=== PATIENT | male | born 1975 | race Caucasian/White ===

== ENCOUNTER 2016-10-06 13:30 | Emergency (ER) | payer MEDICAID ==
[2016-10-06 13:34] VITALS: RESP 18; O2SAT 94
--- NOTE | 2016-10-06 14:25 | EDPHY ---
H & P Stated Complaint: Boil on R upper leg x years;worse over past 2 days Time Seen by Provider: 10/06/16 13:46 HPI/ROS: Chief complaint: Boil on right leg History of present illness: This is a 41-year-old male who presents to the emergency department for evaluation and treatment of a boil on his right leg. Patient reports he has developed this boil over the last few days. It is increasing in size. It is red, warm and painful. He denies precipitating factors. He denies alleviating factors. He has had similar problems multiple times in the past. Sometimes he is able to strain them on his own sometimes it will spontaneously drained. He denies other associated signs or symptoms including no fevers. - Personal History Current Tetanus Diphtheria and Acellular Pertussis (TDAP): Unsure - Medical/Surgical History Hx Alcoholism: Yes - Social History Smoking Status: Former smoker - Physical Exam Exam: General Appearance: Alert, nontoxic. Eyes: Pupils equal and round no injection. Respiratory: Chest is nontender, lungs are clear to auscultation. Cardiac: regular rate and rhythm. Gastrointestinal: Abdomen is soft and nontender, no masses, bowel sounds normal. Musculoskeletal: Ambulating without difficulty Skin: There is an area of fluctuance with surrounding erythema and edema to the right proximal medial thigh. It does not extend into the groin including no involvement of the scrotum or perineum. Constitutional: Initial Vital Signs Temperature (C) 36.6 C 10/06/16 13:30 Heart Rate 88 10/06/16 13:30 Respiratory Rate 18 10/06/16 13:30 Blood Pressure 117/71 10/06/16 13:30 O2 Sat (%) 94 10/06/16 13:30 O2 Delivery Mode Room Air Allergies/Adverse Reactions: No Known Allergies Allergy (Unverified 10/06/16 13:34) Home Medications: Medication Instructions Recorded Cephalexin [Keflex (*)] 500 mg PO QID 10 Days 10/06/16 Naltrexone Microspheres [Vivitrol] 380 mg IM 10/06/16 Sulfamethox/Tmp 800/160 mg 1 tab PO BID 10 Days 10/06/16 [Bactrim Ds] Medical Decision Making Procedures: Patient discussed with my secondary supervising physician Dr. Jordan Garcia. Patient presents to the emergency department concerned he has a boil on his right leg that needs to be drained. He does appear to have an abscess with associated cellulitis. The abscess is incised and drained. I do not appreciate evidence of complications including extension into the groin. He is started on antibiotics. Patient is discharged home. Home care is discussed including warm compresses and taking a full course of antibiotics. He is to follow up with a primary care doctor for recheck. He is given strict return precautions. Patient voiced understanding and agreement with plan. Differential Diagnosis: Included but not limited to cellulitis, abscess, lymphangitis, unlikely necrotizing fasciitis/founiers gangrene - Data Points Microbiology Results: MICROBIOLOGY 10/06/16 14:40 Groin - Swab Gram Stain - Final Medications Given: Discontinued Medications Cephalexin HCl (Keflex) 500 mg PO EDNOW ONE PRN Reason: Protocol Stop: 10/06/16 14:52 Last Admin: 10/06/16 14:58 Dose: 500 mg Trimethoprim/Sulfamethoxazole (Bactrim Ds) 1 ea PO EDNOW ONE PRN Reason: Protocol Stop: 10/06/16 14:52 Last Admin: 10/06/16 14:58 Dose: 1 ea Departure - Departure Disposition: Home, Routine, Self-Care Clinical Impression: Abscess Cellulitis Qualifiers: Site of cellulitis: extremity Site of cellulitis of extremity: lower extremity Laterality: right Qualified Code(s): L03.115 - Cellulitis of right lower limb Condition: Good Instructions: Cellulitis (ED) Additional Instructions: Follow-up with a primary care doctor next week for recheck Take all antibiotics as prescribed until finished even feeling better Apply warm compresses to the area multiple times daily as discussed If symptoms worsen or new symptoms develop return to the emergency room for recheck Referrals: NONE *PRIMARY CARE P,. [Primary Care Provider] - As per Instructions [facility],. [Clinic] - As per Instructions Prescriptions: Cephalexin [Keflex (*)] 500 mg PO QID 10 Days Sulfamethox/Tmp 800/160 mg [Bactrim Ds] 1 tab PO BID 10 Days
[2016-10-06] MEDS ORDERED: SULFAMETHOX/TMP 800/160 MG 1 TAB PO ONE (14:51)
[2016-10-06] MEDS ORDERED: CEPHALEXIN 500 MG CAP PO ONE (14:51)
[2016-10-06 15:16] VITALS: BP 118/73; PULSE 80; TEMP 98.8
== END 2016-10-06 15:16 | disposition home or self-care (01) ==
PROC: 0H9HXZZ Drainage of Right Upper Leg Skin, External Approach (ICD-10-PCS; principal; 2016-10-06)
DX: L02.415 Cutaneous abscess of right lower limb (principal); L03.115 Cellulitis of right lower limb; Z87.891 Personal history of nicotine dependence

== ENCOUNTER 2018-01-12 09:22 | Emergency (ER) | payer MEDICAID ==
[2018-01-12 09:27] VITALS: BP 143/90
--- NOTE | 2018-01-12 09:31 | EDPHY ---
H & P Stated Complaint: R eye itchy,red x several weeks;sent here by employer to "get checked out" Time Seen by Provider: 01/12/18 09:32 - Personal History Current Tetanus Diphtheria and Acellular Pertussis (TDAP): Yes - Medical/Surgical History Hx Alcoholism: Yes Other PMH: obeisty. borderline diabetes - Social History Smoking Status: Former smoker Constitutional: Initial Vital Signs Temperature (C) 36.6 C 01/12/18 09:23 Heart Rate 89 01/12/18 09:23 Respiratory Rate 16 01/12/18 09:23 Blood Pressure 143/90 H 01/12/18 09:23 O2 Sat (%) 96 01/12/18 09:23 O2 Delivery Mode Room Air Allergies/Adverse Reactions: No Known Allergies Allergy (Verified 01/12/18 09:23) Home Medications: Medication Instructions Recorded NK [No Known Home Meds] 01/12/18 Medical Decision Making ED Course/Re-evaluation: CHIEF COMPLAINT: Red eyes HISTORY OF PRESENT ILLNESS: The patient is a 42 y/o male arriving for evaluation of red and itchy eyes for the last 2 weeks. 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 He describes a small amount of purulent discharge upon waking in the morning and a recent stye in his right eye. He first noticed redness in his right eye around 2 weeks ago and this has since spread to his left eye. He denies pain, vision changes, fever, foreign body sensation, trauma, or other complaints. REVIEW OF SYSTEMS: A comprehensive 10 system review of systems is otherwise negative aside from elements mentioned in the history of present illness and medical decision making. PHYSICAL EXAM: HR, BP, O2 Sat, RR. Temp noted General Appearance: Alert, well hydrated, appropriate, and non-toxic appearing. Visual Acuity: Noted from Nurse's notes. Pupils: PERRLA, EOMI, no nystagmus, no trauma. Lids: No edema or swelling Skin: No proptosis, no periorbital erythema or swelling, no vesicles Conjunctivae: Conjunctival irrigation right worse than left, not icteric, no discharge. Anterior chamber: Normal, no hyphema or hypopyon Posterior Chamber: No papilledema or hemorrhages. Past medical history: Obesity Past surgical history: Noncontributory Family history: Noncontributory Social history: Employed. Lives in [place]. DIFFERENTIAL DIAGNOSIS: The differential diagnosis for the patient's symptoms included but was not limited to bacterial vs viral conjunctivitis, environmental allergies, foreign body or trauma, other sources of infection, viral syndrome. MEDICAL DECISION MAKING: This is a 42 y/o male who presents with a 2-week history of eye redness and discharge spreading from his right eye to his left. He has a small amount of purulent discharge upon waking in the morning. No other complaints. Symptoms are consistent with a bacterial or viral conjunctivitis. Plan to treat with Ocuflox eye drops and standard hygiene care instructions. Follow up instructions and return precautions discussed. - Data Points Medications Given: Discontinued Medications Ofloxacin (Ocuflox 0.3% Opht Drops Prepack) 1 btl TAKEHOME EDNOW ONE Stop: 01/12/18 09:34 Last Admin: 01/12/18 09:46 Dose: 1 btl Departure - Departure Disposition: Home, Routine, Self-Care Clinical Impression: Conjunctivitis Qualifiers: Conjunctivitis type: acute Acute conjunctivitis type: unspecified Laterality: bilateral Qualified Code(s): H10.33 - Unspecified acute conjunctivitis, bilateral Condition: Good Instructions: Ofloxacin (Into the eye), Conjunctivitis (ED) Additional Instructions: 1. Use Ocuflox antibiotic eye drops in each eye four times daily for the next 5 days. 2. Okay to return to work. Practice good hand hygiene. Wash your hands frequently and do not touch your face or your eyes particularly while at work. 3. Follow up with your primary care provider as needed for unimproved symptoms over the next few days. 4. Return to the ED for severe pain, vision changes, or other worsening of condition. Referrals: [facility],. [Clinic] - As per Instructions Report Scribed for: Dung Shea Report Scribed by: Leslie Hernandez Date of Report: 01/12/18 Time of Report: 09:34
[2018-01-12] MEDS ORDERED: OFLOXACIN 0.3% SOLN PREPACK OPHT.BTL TAKEHOME ONE (09:33)
== END 2018-01-12 09:53 | disposition home or self-care (01) ==
DX: H10.33 Unspecified acute conjunctivitis, bilateral (principal); R73.03 Prediabetes

== ENCOUNTER 2018-05-22 07:02 | Emergency (ER) | payer MEDICAID ==
[2018-05-22] MEDS ORDERED: ONDANSETRON DISINTEGRATING 4 MG TAB PO ONE (07:29)
[2018-05-22] MEDS ORDERED: diphenhydrAMINE 25 MG CAP PO ONE (07:29)
--- NOTE | 2018-05-22 07:32 | EDPHY ---
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 He states that when he has had prior notes in the past he has itching and swelling in his mouth and throat and then vomiting. He had some pesto sauce last night that he thinks may have been contaminated. Soon after eating it he had some itching in his throat. He did not have any swelling or difficulty breathing. He then had nausea vomiting throughout the night and abdominal cramping. He did not take any medications. He states that about an hour ago he was doubled over in pain but was able to go to the bathroom and since then he has felt completely better. No diarrhea. No blood in his stool or vomit. No fever. No rash. He is now asymptomatic. Severity: Severe Modifying factors: Resolved after going to the bathroom REVIEW OF SYSTEMS: Constitutional: denies: chills, fever, recent illness, recent injury EENTM: denies: blurred vision, double vision, nose congestion Respiratory: denies: cough, shortness of breath Cardiac: denies: chest pain, irregular heart rate, lightheadedness, palpitations Gastrointestinal/Abdominal: See HPI Genitourinary: denies: dysuria, frequency, hematuria, pain Musculoskeletal: denies: joint pain, muscle pain Skin: denies: lesions, rash, jaundice, bruising Neurological: denies: headache, numbness, paresthesia, tingling, dizziness, weakness Hematologic/Lymphatic: denies: blood clots, easy bleeding, easy bruising Immunologic/allergic: denies: HIV/AIDS, transplant 10 systems reviewed and negative except as noted EXAM: GENERAL: Well-appearing, obese and in no acute distress. HEAD: Atraumatic, normocephalic. EYES: Pupils equal round and reactive to light, extraocular movements intact, sclera anicteric, conjunctiva are normal. ENT: TMs normal, nares patent, oropharynx clear without exudates. Moist mucous membranes. NECK: Normal range of motion, supple without lymphadenopathy or JVD. LUNGS: Breath sounds clear to auscultation bilaterally and equal. No wheezes rales or rhonchi. HEART: Regular rate and rhythm without murmurs, rubs or gallops. ABDOMEN: Soft, nontender, normoactive bowel sounds. No guarding, no rebound. No masses appreciated. BACK: No CVA tenderness, no spinal tenderness, step-offs or deformities EXTREMITIES: Normal range of motion, no pitting or edema. No clubbing or cyanosis. NEUROLOGICAL: Cranial nerves II through XII grossly intact. Normal speech, normal gait. 5/5 strength, normal movement in all extremities, normal sensation , normal reflexes PSYCH: Normal mood, normal affect. SKIN: Warm, dry, normal turgor, no visible rashes or lesions. - Personal History Current Tetanus/Diphtheria Vaccine: Unsure Current Tetanus Diphtheria and Acellular Pertussis (TDAP): Unsure - Medical/Surgical History Hx Asthma: No Hx Chronic Respiratory Disease: No Hx Diabetes: Yes Hx Cardiac Disease: No Hx Renal Disease: No Hx Cirrhosis: No Hx Alcoholism: Yes Hx HIV/AIDS: No Hx Splenectomy or Spleen Trauma: No Other PMH: obeisty. borderline diabetes - Family History Significant Family History: No pertinent family hx - Social History Smoking Status: Former smoker Alcohol Use: None Constitutional: Initial Vital Signs Temperature (C) 36.6 C 05/22/18 07:04 Heart Rate 87 05/22/18 07:04 Respiratory Rate 18 05/22/18 07:04 Blood Pressure 151/64 H 05/22/18 07:04 O2 Sat (%) 94 05/22/18 07:04 O2 Delivery Mode Room Air Allergies/Adverse Reactions: pine nut Allergy (Verified 05/22/18 07:08) Home Medications: Medication Instructions Recorded Ondansetron Odt [Zofran Odt 4 mg 4 mg PO Q4 PRN #20 tab 05/22/18 (RX)] Medical Decision Making - Diagnostics EKG Interpretation: An EKG obtained and was read and documented in trace view. Please see trace view for full reading and report. Sinus rhythm, no acute ischemic changes or arrhythmia ED Course/Re-evaluation: The patient is currently asymptomatic. Will treat with oral Zofran and Benadryl and observe. No chest pain or shortness of breath. 9:00 a.m. Patient remains asymptomatic. He is ready to go home. We discussed taking Benadryl and Zofran at home if needed. He declines further workup or testing or observation. Differential Diagnosis: Partial list of the Differential diagnosis considered include but were not limited to; allergic reaction, gastroenteritis, anxiety and although unlikely based on the history and physical exam, I also considered acute coronary disease , PE, anaphylaxis. I discussed these differential diagnoses and the plan with the patient as well as the usual and expected course. The patient understands that the diagnosis is provisional and that in medicine we are not always correct and that further workup is often warranted. Usual and customary warnings were given. All of the patient's questions were answered. The patient was instructed to return to the emergency department should the symptoms at all worsen or return, otherwise to followup with the physician as we discussed. - Data Points Medications Given: Discontinued Medications Diphenhydramine HCl (Benadryl) 50 mg PO EDNOW ONE Stop: 05/22/18 07:30 Last Admin: 05/22/18 07:36 Dose: 50 mg Ondansetron HCl (Zofran Odt) 4 mg PO EDNOW ONE Stop: 05/22/18 07:30 Last Admin: 05/22/18 07:36 Dose: 4 mg Departure - Departure Disposition: Home, Routine, Self-Care Clinical Impression: Allergic reaction Qualifiers: Encounter type: initial encounter Qualified Code(s): T78.40XA - Allergy, unspecified, initial encounter Condition: Good Instructions: Food Allergy (ED) Referrals: NONE *PRIMARY CARE P,. [Primary Care Provider] - As per Instructions Sparkle Malone MD [[facility] [place] Primary [place] Provider] - 5-7 days, call for appt. Prescriptions: Ondansetron Odt [Zofran Odt 4 mg (RX)] 4 mg PO Q4 PRN #20 tab PRN Reason: Nausea & Vomiting
--- NOTE | 2018-05-22 07:41 | CPEKG ---
Test Reason : OPEN Blood Pressure : / mmHG Vent. Rate : 075 BPM Atrial Rate : 075 BPM P-R Int : 145 ms QRS Dur : 107 ms QT Int : 364 ms P-R-T Axes : 059 -39 035 degrees QTc Int : 407 ms Sinus rhythm Left axis deviation Abnormal R-wave progression, early transition Confirmed by Samy Torres ([id number]) on 05/22/2018 7:41:11 AM Referred By: SAMY TORRES Confirmed By:Samy Torres
[2018-05-22 09:08] VITALS: BP 122/85
== END 2018-05-22 09:12 | disposition home or self-care (01) ==
DX: T78.49XA Other allergy, initial encounter (principal); Z87.891 Personal history of nicotine dependence